=== PATIENT | male | born 1935 | race Caucasian/White ===

== ENCOUNTER 2016-06-16 15:05 | Emergency (ER) | payer MEDICARE ==
[~2016-06-16] VITALS: Ht 177.8 cm; Wt 78.0 kg
[~2016-06-16 15:05] MED LIST: AMOXICILLIN500 MG PO; CHILD'S ASA81 MG PO; ENALAPRIL10 MG PO; LIPITOR40 MG PO; MEDDOSEPAK PO; METFORMIN500 MG PO; NAPROSYN500 MG PO; TENORMIN50 MG PO; WELCHOL625 MG PO
[2016-06-16 16:12] VITALS: BP 149/69
== END 2016-06-16 16:16 | disposition home or self-care (01) ==
LOC: ED 15:05
PROC: 0HQ0XZZ Repair Scalp Skin, External Approach (ICD-10-PCS; principal; 2016-06-16)
DX: S01.01XA Laceration without foreign body of scalp, initial encounter (principal); E11.9 Type 2 diabetes mellitus without complications; E78.5 Hyperlipidemia, unspecified; I10 Essential (primary) hypertension; H91.90 Unspecified hearing loss, unspecified ear; R26.89 Other abnormalities of gait and mobility; F17.210 Nicotine dependence, cigarettes, uncomplicated; W01.198A Fall on same level from slipping, tripping and stumbling with subsequent striking against other object, initial encounter

== ENCOUNTER 2016-06-25 12:25 | Emergency (ER) | payer MEDICARE ==
[~2016-06-25] VITALS: Ht 177.8 cm; Wt 82.0 kg
[2016-06-25 12:45] VITALS: BP 134/72
== END 2016-06-25 12:51 | disposition home or self-care (01) ==
LOC: ED 12:25
DX: S01.01XD Laceration without foreign body of scalp, subsequent encounter (principal)